=== PATIENT | male | born 1980 | race Caucasian/White ===

== ENCOUNTER → 2021-03-30 | Outpatient (CLI) | payer OTHER | LOC: EXRD 15:05 | DX: S49.92XA Unspecified injury of left shoulder and upper arm, initial encounter (principal); B19.20 Unspecified viral hepatitis C without hepatic coma | CPT/HCPCS: 73030 ==

== ENCOUNTER 2021-06-14 20:09 | Emergency (ER) | payer OTHER | END 2021-06-14 23:50 | disposition home or self-care (01) | LOC: ER1 20:09 | DX: R45.850 Homicidal ideations (principal); E11.9 Type 2 diabetes mellitus without complications; I10 Essential (primary) hypertension; Z86.19 Personal history of other infectious and parasitic diseases; Z88.1 Allergy status to other antibiotic agents; Z79.84 Long term (current) use of oral hypoglycemic drugs; F17.290 Nicotine dependence, other tobacco product, uncomplicated; Z20.822 Contact with and (suspected) exposure to COVID-19 | CPT/HCPCS: 99284; U0002 ==

== ENCOUNTER → 2021-06-14 | Outpatient (CLI) | payer OTHER | LOC: RAD 17:22 | DX: S02.2XXA Fracture of nasal bones, initial encounter for closed fracture (principal); M54.2 Cervicalgia; G89.29 Other chronic pain; Y09 Assault by unspecified means | CPT/HCPCS: 70140 ==

== ENCOUNTER 2021-07-07 20:09 | Emergency (ER) | payer OTHER | END 2021-07-07 21:44 | disposition left against medical advice (07) | LOC: ER1 20:09 | PROVIDERS: Physician Assistant | DX: F41.9 Anxiety disorder, unspecified (principal); E11.9 Type 2 diabetes mellitus without complications; F15.90 Other stimulant use, unspecified, uncomplicated; Z88.8 Allergy status to other drugs, medicaments and biological substances | CPT/HCPCS: 80307; 81001; 99283 ==